=== PATIENT | female | born 1950 | race Caucasian/White ===

== ENCOUNTER 2018-02-13 08:07 | Outpatient (CLI) | payer OTHER ==
--- NOTE | 2018-02-13 11:46 | MMO ---
BILATERAL SCREENING MAMMOGRAM: DATE: 02/13/18 HISTORY: 67-year-old female for screening mammography. COMPARISON: 01/18/16. FINDINGS: Bilateral MLO and CC views of the breasts show scattered fibroglandular breast tissue. Benign-appeari ng calcifications are seen in both breasts. There is no evidence of suspicious mass, suspicious clust er of microcalcifications, or area of architectural distortion. Interpretation of this mammogram was performed with the assistance of computer-aided detection. IMPRESSION: BIRADS 2: Benign Finding(s) Annual screening mammography is recommended. POS: SHIRIN
== END 2018-02-13 08:08 | disposition home or self-care (01) ==
LOC: SCSMAMMO 08:07
PROVIDERS: ATTEND Family Medicine
DX: Z12.31 Encounter for screening mammogram for malignant neoplasm of breast (principal)
CPT/HCPCS: 77067

== ENCOUNTER 2018-11-07 08:45 | Outpatient (CLI) | payer OTHER ==
--- NOTE | 2018-11-07 10:13 | BD ---
BONE DENSITOMETRY USING DEXA: Date: 11/07/18 HISTORY: Postmenopausal screening for osteoporosis. FINDINGS: Lumbar Spine: BMD (g/cm2) L1 1.011 T-Score: 0.2 Z-Score: 1.9 L2 0.957 T-Score: -0.6 Z-Score: 1.3 L3 1.170 T-Score: 0.8 Z-Score: 2.8 L4 1.427 T-Score: 3.3 Z-Score: 5.4 L1-L4 1.148 T-Score: 0.9 Z-Score: 2.9 Femoral Neck: 0.809 T-Score: -0.4 Z-Score: 1.0 Total Femur: 1.087 T-Score: 1.2 Z-Score: 2.2 IMPRESSION: Normal bone mineral density. No evidence of osteopenia/osteoporosis. POS: SHIRIN
--- NOTE | 2018-11-07 10:54 | MRI ---
LUMBAR SPINE MRI WITHOUT IV CONTRAST: HISTORY: Low back pain with pain radiating down right leg for several months. FINDINGS: Conus medullaris region is unremarkable. Generalized disk desiccation changes and disk-osteophytosis with ligament and facet hypertrophic changes. There is evidence for dilatation of the common bile d uct and what appears to be a probable large gallstone in the gallbladder, followup right upper quadra nt ultrasound imaging in this regard is suggested. T12-L1 and L1-L2 disk spaces unremarkable. At L2-L3, there are disk bulging with ligament and facet hypertrophic changes with severe central can al and lateral recess stenosis and moderate bilateral neural foraminal stenosis. At L3-L4, moderate central canal and moderate to severe bilateral lateral recess stenosis and moderat e bilateral foraminal stenosis. A 1 cm grade II spondylolisthesis of L4 on L5 with vary markedly severe central canal and lateral rec ess stenosis and very severe bilateral foraminal stenosis. Disk-osteophytosis generalized at L5-S1 with mild lateral recess stenosis on the right and moderate l ateral recess stenosis on the left with associated annular fissures and moderate to severe bilateral foraminal stenosis. IMPRESSION: Multilevel variable severity up to severe central canal, lateral recess, and foraminal stenosis most marked at L4-L5 with significant anterolisthesis. Note of dilatation of the common bile duct and pro bable large gallstone incompletely imaged, consider followup right upper quadrant ultrasound in that regard. POS: TPC
== END 2018-11-07 08:46 | disposition home or self-care (01) ==
LOC: BICMAMMO 08:45
PROVIDERS: ATTEND Family Medicine
DX: M54.5 Low back pain (principal); M85.80 Other specified disorders of bone density and structure, unspecified site; M48.061 Spinal stenosis, lumbar region without neurogenic claudication; M43.16 Spondylolisthesis, lumbar region; K83.8 Other specified diseases of biliary tract
CPT/HCPCS: 72148; 77080

== ENCOUNTER 2018-12-20 09:05 | Outpatient (CLI) | payer OTHER ==
--- NOTE | 2018-12-20 09:52 | ULT ---
RIGHT UPPER QUADRANT ULTRASOUND: Date: 12/20/18 INDICATION: History of an abnormal MRI. COMPARISON: Prior MRI of the lumbar spine dated 11/07/18. FINDINGS: No focal hepatic lesion is evident. There are multiple stones within the gallbladder. The gallbladder wall is within normal limits, measuring 1.5 mm. No sonographic Shannon's sign is reported. Common bile duct measures 1.2 cm. Visualized aspects of the pancreas are unremarkable. The right kidney measures 11.1 x 6.3 x 5.8 cm. IMPRESSION: 1. Cholelithiasis without sonographic evidence of acute calculus cholecystitis. 2. Dilated common bile duct up to 1.2 cm. No visible intraluminal stone was evident within the visua lized aspects of the dilated common bile duct. Would recommend a MRCP evaluation to further interroga te the cause of the common bile duct dilatation. POS: OFF
== END 2018-12-20 09:06 | disposition home or self-care (01) ==
LOC: BICULT 09:05
PROVIDERS: ATTEND Family Medicine
DX: K83.8 Other specified diseases of biliary tract (principal); K80.20 Calculus of gallbladder without cholecystitis without obstruction
CPT/HCPCS: 76705

== ENCOUNTER 2019-01-22 09:10 | Outpatient (CLI) | payer OTHER ==
--- NOTE | 2019-01-22 10:53 | MRI ---
MRI ABDOMEN WITHOUT AND WITH CONTRAST MRCP: Date: 01/22/19 HISTORY: Dilated common bile duct. Right upper quadrant pain for a month. COMPARISON: Gallbladder ultrasound dated 12/20/18. TECHNIQUE: Multiplanar, multisequence MR images were obtained of the abdomen without and with IV contrast. MRCP images were performed. FINDINGS: Multiple filling defects are seen in the gallbladder consistent with gallstones. Common bile duct is enlarged, measuring 12 mm in greatest dimension. No significant central intrahepatic biliary dilatati on is seen. No filling defects are seen within the common bile duct to suggest choledocholithiasis. No focal liver lesions are seen. No loss of signal is seen in the liver on [id number] images. The k idneys, adrenal glands, spleen, and pancreas are unremarkable. No pelvic adenopathy is seen. No marrow signal abnormality is present. No abnormal enhancement is see n on this examination. IMPRESSION: 1. Cholelithiasis. 2. Enlargement of the common bile duct without evidence of common bile duct stones. POS: DAVIS
[2019-01-22] MEDS ORDERED: Gadobenate Dimeglumine 529 MG/1 ML (20ML VIAL) ONE (11:35)
== END 2019-01-22 09:11 | disposition home or self-care (01) ==
LOC: BICMRI 09:10
PROVIDERS: ATTEND Family Medicine
DX: K83.8 Other specified diseases of biliary tract (principal); K80.20 Calculus of gallbladder without cholecystitis without obstruction
CPT/HCPCS: 74183; 82565; A9577